=== PATIENT | male | born 1965 | race Hispanic/Latino ===

== ENCOUNTER 2019-09-30 08:54 | Emergency (ER) | payer BC ==
--- OUTSIDE RECORDS SUMMARY | 2019-09-30 08:56 | XMS REPORT ---
:1965 [facility] Address [address] [place] [address] Dr. V[address] [place] [address] Care Team Providers Name Role Phone Unavailable Unavailable Unavailable Problems This patient has no known problems. Allergies, Adverse Reactions, Alerts This patient has no known allergies or adverse reactions. Medications This patient has no known medications.
--- OUTSIDE RECORDS SUMMARY | 2019-09-30 08:56 | XMS REPORT | Summary of Care ---
:1965 Author Organization [facility] - Health Address [address] [place] [address] Care Team Providers Name Role Phone Clifton Lopez MD Primary Care Provider Encounter Details Date Type Department Care Team Description 09/07/2019 Orders Only [facility] Doctor Unassigned, No [address] [facility] [place] [address] [address] [place] [address] Allergies Not on Filedocumented as of this encounter (statuses as of 09/07/2019) Medications Not on filedocumented as of this encounter (statuses as of 09/07/2019) Active Problems Not on filedocumented as of this encounter (statuses as of 09/07/2019) Social History Tobacco Use Types Packs/Day Years Used Date Never Assessed Sex Assigned at Date Recorded Not on file Job Start Date Occupation Industry Not on file Not on file Not on file Travel History Travel Start Travel End No recent travel history available. documented as of this encounter Last Filed Vital Signs Not on filedocumented in this encounter Plan of Treatment Health Maintenance Due Date Last Done Comments HEPATITIS C (HCV) SCREEN 1965 DTaP,Tdap,and Td Vaccines (1 - 01/31/1975 Tdap) COLONOSCOPY 01/31/2014 Zoster Recombinant Vaccine 01/31/2014 (SHINGRIX) (1 of 2) INFLUENZA VACCINE (#1) 2019 PNEUMOCOCCAL 0-64 YEARS COMBINED Aged Out No longer eligible based on SERIES patient's age to complete this topic documented as of this encounter Procedures Procedure Name Priority Date/Time Associated Diagnosis Comments ASSIGNMENT OF BENEFITS Routine 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
--- OUTSIDE RECORDS SUMMARY | 2019-09-30 08:56 | XMS REPORT | Summary of Care ---
:1965 Author Organization [facility] Address [address] [place] [id number] Care Team Providers Name Role Phone Clifton Lopez MD Primary Care Provider Reason for Referral Radiology Services (Routine) Status Reason Specialty Diagnoses / Referred By Referred To Procedures Contact Contact Closed Diagnostic Diagnoses Bilateral shoulder pain, unspecified chronicity Clifton Lopez Radiology Procedures XR SHOULDER <2 VW BILATERAL MD [facility] [address] [place] [address] Radiology Services (Routine) Status Reason Specialty Diagnoses / Referred By Referred To Procedures Contact Contact New Request Diagnostic Diagnoses Pain in both knees, unspecified chronicity Clifton Lopez Radiology Procedures XR KNEE 3 VW BILATERAL MD [facility] [address] [place] [address] Reason for Visit Radiology Services (Routine) Status Reason Specialty Diagnoses / Referred By Referred To Procedures Contact Contact Closed Diagnostic Diagnoses Bilateral shoulder pain, unspecified chronicity Clifton Lopez Radiology Procedures XR SHOULDER <2 VW BILATERAL MD [facility] [address] [place] [address] Encounter Details Date Type Department Care Team Description 09/07/2019 Hospital Encounter [facility] Clifton Tatum Radiology MD [facility] [address] [facility] [address] [place] [address] [facility] [phone] [place] [address] Allergies Not on Filedocumented as of this encounter (statuses as of 09/08/2019) Medications Not on filedocumented as of this encounter (statuses as of 09/08/2019) Active Problems Not on filedocumented as of this encounter (statuses as of 09/08/2019) Social History Tobacco Use Types Packs/Day Years [...] Procedure Name Priority Date/Time Associated Diagnosis Comments XR SHOULDER <2 VW Routine 09/07/2019 9:24 AM Bilateral shoulder Results for this 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 XR KNEE 3 VW Routine 09/07/2019 9:24 AM Pain in both knees, Results for this BILATERAL HUMAN RESOURCE MANAGER unspecified procedure are in chronicity the results section. documented in this encounter Results XR SHOULDER <2 VW BILATERAL (09/07/2019 9:24 AM HUMAN RESOURCE MANAGER) Specimen Impressions Performed At PACS/VR/DOSE Mild bilateral knee and glenohumeral joint osteoarthrosis. Bilateral rotator cuff crystalline deposition. Enthesophyte formation versus biceps tendon osseous bodies at the level of the left proximal humerus. Narrative Performed At EXAM: PACS/VR/DOSE XR KNEE 3 VW BILATERAL, EXAM: XR SHOULDER <2 VW BILATERAL HISTORY: Pain in both knees, unspecified chronicity COMPARISON: None FINDINGS: Imaging of the left and right knee demonstrates mild degenerative tibial spine hypertrophy. Mild bilateral tricompartmental knee joint space narrowing with subchondral sclerosis and osteophyte formation are seen. A dystrophic calcification is seen over the posterior proximal left leg. Trace joint effusions are present. Images of the left shoulder demonstrate maintenance of alignment. Curvilinear crystalline deposits are seen adjacent to the humeral heads. Minimal inferior glenohumeral osteophytosis is seen bilaterally, more notable on the left. Osseous debris lies along the proximal medial cortex of the left humeral head. Procedure Note [facility], Radiant Results Inft User - 09/07/2019 1:00 PM HUMAN RESOURCE MANAGER EXAM: XR KNEE 3 VW BILATERAL, EXAM: XR SHOULDER <2 VW BILATERAL HISTORY: Pain in both knees, unspecified chronicity COMPARISON: None FINDINGS: Imaging of the left and right knee demonstrates mild degenerative tibial spine hypertrophy. Mild bilateral tricompartmental knee joint space narrowing with subchondral sclerosis and osteophyte formation are seen. A dystrophic calcification is seen over the posterior proximal left leg. Trace joint effusions are present. Images of the left shoulder demonstrate maintenance of alignment. Curvilinear crystalline deposits are seen adjacent to the humeral heads. Minimal inferior glenohumeral osteophytosis is seen bilaterally, more notable on the left. Osseous debris lies along the proximal medial cortex of the left humeral head. IMPRESSION Mild bilateral knee and glenohumeral joint osteoarthrosis. Bilateral rotator cuff crystalline deposition. Enthesophyte formation versus biceps tendon osseous bodies at the level of the left proximal humerus. Performing Organization Address City/State/Zipcode Phone Number PACS/VR/DOSE XR KNEE 3 VW BILATERAL (09/07/2019 9:24 AM HUMAN RESOURCE MANAGER) Specimen Impressions Performed At PACS/VR/DOSE Mild bilateral knee and glenohumeral joint osteoarthrosis. Bilateral rotator cuff crystalline deposition. Enthesophyte formation versus biceps tendon osseous bodies at the level of the left proximal humerus. Narrative Performed At EXAM: PACS/VR/DOSE XR KNEE 3 VW BILATERAL, EXAM: XR SHOULDER <2 VW BILATERAL HISTORY: Pain in both knees, unspecified chronicity COMPARISON: None FINDINGS: Imaging of the left and right knee demonstrates mild degenerative tibial spine hypertrophy. Mild bilateral tricompartmental knee joint space narrowing with subchondral sclerosis and osteophyte formation are seen. A dystrophic calcification is seen over the posterior proximal left leg. Trace joint effusions are present. Images of the left shoulder demonstrate maintenance of alignment. Curvilinear crystalline deposits are seen adjacent to the humeral heads. Minimal inferior glenohumeral osteophytosis is seen bilaterally, more notable on the left. Osseous debris lies along the proximal medial cortex of the left humeral head. Procedure Note [facility], Radiant Results Inft User - 09/07/2019 1:00 PM HUMAN RESOURCE MANAGER EXAM: XR KNEE 3 VW BILATERAL, EXAM: XR SHOULDER <2 VW BILATERAL HISTORY: Pain in both knees, unspecified chronicity COMPARISON: None FINDINGS: Imaging of the left and right knee demonstrates mild degenerative tibial spine hypertrophy. Mild bilateral tricompartmental knee joint space narrowing with subchondral sclerosis and osteophyte formation are seen. A dystrophic calcification is seen over the posterior proximal left leg. Trace joint effusions are present. Images of the left shoulder demonstrate maintenance of alignment. Curvilinear crystalline deposits are seen adjacent to the humeral heads. Minimal inferior glenohumeral osteophytosis is seen bilaterally, more notable on the left. Osseous debris lies along the proximal medial cortex of the left humeral head. IMPRESSION Mild bilateral knee and glenohumeral joint osteoarthrosis. Bilateral rotator cuff crystalline deposition. Enthesophyte formation versus biceps tendon osseous bodies at the level of the left proximal humerus. Performing Organization Address City/State/Zipcode Phone Number PACS/VR/DOSE documented in this encounter Visit Diagnoses Diagnosis Pain in both knees, unspecified chronicity Bilateral shoulder pain, unspecified chronicity documented in this encounter Insurance Payer Benefit Plan Subscriber ID Effective Dates Phone Address Type / Group BCBS [facility] [id number] 2017-Shelia [phone] [address] PPO/POS [place] t [id number] [place] [address] ([place]) [place] [address] documented as of this encounter
[2019-09-30] MEDS ORDERED: MECLIZINE HCL 12.5 MG TAB ONE (09:42)
[2019-09-30] MEDS ORDERED: DIAZEPAM 5 MG TABLET ONE (09:42)
--- NOTE | 2019-09-30 10:54 | EDPHYS ---
Physician Documentation [facility] Name: Mohan Billingsley Age: 54 yrs Sex: Male : 1965 Arrival Date: 09/30/2019 Time: 08:57 Bed 18 Private MD: ED Physician Juan C Cali HPI: 09/30 09:53 This 54 yrs old Male presents to ER via Ambulatory with complaints of kdr Dizziness, Nausea, Decreased Appetite. 09:53 The patient presents with dizziness, feeling off balance, vertigo. Onset: The kdr symptoms/episode began/occurred suddenly, 2-3 days ago. Context: occurred at home, occurred while the patient was at rest, just prior to the episode the patient experienced no apparent symptoms. Modifying factors: The symptoms are alleviated by closing eyes, holding head still, the symptoms are aggravated by movement of head, standing up, changing position. Associated signs and symptoms: Pertinent positives: ataxia, nausea, vomiting, Pertinent negatives: abdominal pain, agitation, blurred vision, chest pain, combativeness, confusion, diaphoresis, focal weakness, numbness, palpitations, , seizure, shortness of breath, syncope, tingling. Severity of symptoms: At their worst the symptoms were mild moderate just prior to arrival, in the emergency department the symptoms have improved mildly. Patient's baseline: Neuro: alert and fully oriented, Motor: no deficits, Ambulation: walks without assistance, Speech: normal. The patient has experienced a previous episode, and the symptoms today are exactly the same. Historical: - Allergies: 09:10 No Known Allergies; iw - Home Meds: 09:10 Metformin Oral [Active]; iw - PMHx: 09:10 Diabetes - NIDDM; iw - PSHx: 09:10 None; iw - Immunization history:: Adult Immunizations up to date. - Coronavirus screen:: The patient has NOT traveled to [place] in the past 14 days. Proceed with normal triage process as indicated. - Social history:: Smoking status: Patient reports the use of cigarette tobacco products, denies chronic smoking, but will smoke occasionally. - Ebola Screening: : Patient negative for fever greater than or equal to 101.5 degrees Fahrenheit, and additional compatible Ebola Virus Disease symptoms Patient denies exposure to infectious person Patient denies travel to an Ebola-affected area in the 21 days before illness onset No symptoms or risks identified at this time. ROS: 09:53 Constitutional: Negative for fever, chills, and weight loss, Eyes: Negative for injury, kdr pain, redness, and discharge, ENT: Negative for injury, pain, and discharge, Neck: Negative for injury, pain, and swelling, Cardiovascular: Negative for chest pain, palpitations, and edema, Respiratory: Negative for shortness of breath, cough, wheezing, and pleuritic chest pain, Abdomen/GI: Negative for abdominal pain, nausea, vomiting, diarrhea, and constipation, Back: Negative for injury and pain, : Negative for injury, bleeding, discharge, and swelling, MS/Extremity: Negative for injury and deformity, Skin: Negative for injury, rash, and discoloration, Psych: Negative for depression, anxiety, suicide ideation, homicidal ideation, and hallucinations, Allergy/Immunology: Negative for hives, rash, and allergies, Endocrine: Negative for neck swelling, polydipsia, polyuria, polyphagia, and marked weight changes, Hematologic/Lymphatic: Negative for swollen nodes, abnormal bleeding, and unusual bruising. 09:53 Neuro: Positive for dizziness, Negative for altered mental status, gait disturbance, hearing loss, loss of consciousness, numbness, seizure activity, speech changes, syncope, near syncope, tingling, tinnitus, tremor, visual changes, weakness. Exam: 09:53 Constitutional: This is a well developed, well nourished patient who is awake, alert, kdr and in no acute distress. Head/Face: Normocephalic, atraumatic. Eyes: Pupils equal round and reactive to light, extra-ocular motions intact. Lids and lashes normal. Conjunctiva and sclera are non-icteric and not injected. Cornea within normal limits. Periorbital areas with no swelling, redness, or edema. Neck: Trachea midline, no thyromegaly or masses palpated, and no cervical lymphadenopathy. Supple, full range of motion without nuchal rigidity, or vertebral point tenderness. No Meningismus. Chest/axilla: Normal chest wall appearance and motion. Nontender with no deformity. No lesions are appreciated. Cardiovascular: Regular rate and rhythm with a normal S1 and S2. No gallops, murmurs, or rubs. Normal PMI, no JVD. No pulse deficits. Respiratory: Lungs have equal breath sounds bilaterally, clear to auscultation and percussion. No rales, rhonchi or wheezes noted. No increased work of breathing, no retractions or nasal flaring. Abdomen/GI: Soft, non-tender, with normal bowel sounds. No distension or tympany. No guarding or rebound. No evidence of tenderness throughout. Back: No spinal tenderness. No costovertebral tenderness. Full range of motion. Skin: Warm, dry with normal turgor. Normal color with no rashes, no lesions, and no evidence of cellulitis. MS/ Extremity: Pulses equal, no cyanosis. Neurovascular intact. Full, normal range of motion. Psych: Awake, alert, with orientation to person, place and time. Behavior, mood, and affect are within normal limits. 09:53 Neuro: Gait: is steady, appropriate for age. Vital Signs: 09:10 BP 139 / 84; Pulse 72; Resp 18 S; Temp 97.7; Pulse Ox 100% on R/A; Weight 95.25 kg; iw Height 5 ft. 6 in. (167.64 cm); Pain 0/10; 10:45 BP 135 / 79; Pulse 69; Resp 17; Pulse Ox 98% on R/A; tw2 09:10 Body Mass Index 33.89 (95.25 kg, 167.64 cm) iw MDM: 10:52 Patient medically screened. kdr 11:08 Data reviewed: vital signs, nurses notes. Counseling: I had a detailed discussion with kdr the patient and/or guardian regarding: the historical points, exam findings, and any diagnostic results supporting the discharge/admit diagnosis, the need for outpatient follow up. Administered Medications: 09:42 Drug: Meclizine 25 mg Route: PO; tw2 11:02 Follow up: Response: No adverse reaction; Marked relief of symptoms tw2 09:42 Drug: Valium 5 mg Route: PO; tw2 11:02 Follow up: Response: No adverse reaction; Marked relief of symptoms tw2 Disposition: 09/30/19 10:52 Discharged to Home. Impression: Other peripheral vertigo, bilateral. - Condition is Stable. - Discharge Instructions: Vertigo, [id number], Dizziness, [id number]. - Prescriptions for Meclizine 25 mg Oral Tablet - take 1 tablet by ORAL route every 8 hours As needed; 30 tablet. Valium 5 mg Oral Tablet - take 1 tablet by ORAL route every 8 hours As needed; 6 tablet. - Medication Reconciliation Form, Thank You Letter, Work release form form. - Follow up: Private Physician; When: 2 - 3 days; Reason: If symptoms return, Further diagnostic work-up, Recheck today's complaints, Continuance of care, Re-evaluation by your physician. - Problem is new. - Symptoms are resolved. Signatures: Juan C Cali MD MD kdr Angelica Bae RN RN iw Alecia Irby RN RN tw2 Corrections: (The following items were deleted from the chart) 11:02 10:52 09/30/2019 10:52 Discharged to Home. Impression: Other peripheral vertigo, tw2 bilateral. Condition is Stable. Forms are Work release form, Medication Reconciliation Form, Thank You Letter, Antibiotic Education, Prescription Opioid Use. Follow up: Private Physician; When: 2 - 3 days; Reason: If symptoms return, Further diagnostic work-up, Recheck today's complaints, Continuance of care, Re-evaluation by your physician. Problem is new. Symptoms are resolved. kdr
--- NOTE | 2019-09-30 10:54 | ER ---
Nurse's Notes [facility] Name: Mohan Billingsley Age: 54 yrs Sex: Male : 1965 Arrival Date: 09/30/2019 Time: 08:57 Bed 18 Private MD: Diagnosis: Other peripheral vertigo, bilateral Presentation: 09/30 09:08 Presenting complaint: Patient states: woke up yesterday and was dizzy and off balance, iw felt nauseated, dizziness is worse when he starts moving. Transition of care: patient was not received from another setting of care. Onset of symptoms was September 29, 2019. Risk Assessment: Do you want to hurt yourself or someone else? Patient reports no desire to harm self or others. Initial Sepsis Screen: Does the patient meet any 2 criteria? No. Patient's initial sepsis screen is negative. Does the patient have a suspected source of infection? No. Patient's initial sepsis screen is negative. Care prior to arrival: None. 09:08 Method Of Arrival: Ambulatory iw 09:08 Acuity: ANILA 3 iw Triage Assessment: 09:15 General: Appears in no apparent distress. Behavior is calm, cooperative, appropriate tw2 for age. GI: Reports nausea. Historical: - Allergies: 09:10 No Known Allergies; iw - Home Meds: 09:10 Metformin Oral [Active]; iw - PMHx: 09:10 Diabetes - NIDDM; iw - PSHx: 09:10 None; iw - Immunization history:: Adult Immunizations up to date. - Coronavirus screen:: The patient has NOT traveled to [place] in the past 14 days. Proceed with normal triage process as indicated. - Social history:: Smoking status: Patient reports the use of cigarette tobacco products, denies chronic smoking, but will smoke occasionally. - Ebola Screening: : Patient negative for fever greater than or equal to 101.5 degrees Fahrenheit, and additional compatible Ebola Virus Disease symptoms Patient denies exposure to infectious person Patient denies travel to an Ebola-affected area in the 21 days before illness onset No symptoms or risks identified at this time. Screenin:12 Abuse screen: Denies threats or abuse. Nutritional screening: No deficits noted. tw2 Tuberculosis screening: No symptoms or risk factors identified. Fall Risk None identified. Assessment: 09:15 General: Appears in no apparent distress. well groomed, Behavior is calm, cooperative, tw2 appropriate for age. Pain: Denies pain. Neuro: Level of Consciousness is awake, alert, obeys commands, Oriented to person, place, time, situation, Reports dizziness. Cardiovascular: Heart tones S1 S2 Patient's skin is warm and dry. Respiratory: Airway is patent Respiratory effort is even, unlabored, Respiratory pattern is regular, symmetrical, Breath sounds are clear bilaterally. GI: Abdomen is flat, Bowel sounds present X 4 quads. : No signs and/or symptoms were reported regarding the genitourinary system. EENT: No signs and/or symptoms were reported regarding the EENT system. Derm: No signs and/or symptoms reported regarding the dermatologic system. Musculoskeletal: Range of motion: intact in all extremities. 09:30 Reassessment: provider at bedside at this time. tw2 11:00 Reassessment: Patient appears in no apparent distress at this time. Patient and/or tw2 family updated on plan of care and expected duration. Pain level reassessed. Patient is alert, oriented x 3, equal unlabored respirations, skin warm/dry/pink. Patient states feeling better. Patient states symptoms have improved. Vital Signs: 09:10 BP 139 / 84; Pulse 72; Resp 18 S; Temp 97.7; Pulse Ox 100% on R/A; Weight 95.25 kg; iw Height 5 ft. 6 in. (167.64 cm); Pain 0/10; 10:45 BP 135 / 79; Pulse 69; Resp 17; Pulse Ox 98% on R/A; tw2 09:10 Body Mass Index 33.89 (95.25 kg, 167.64 cm) iw ED Course: 08:57 Patient arrived in ED. as 08:57 Juan C Cali MD is Attending Physician. kdr 09:08 Triage completed. iw 09:10 Arm band placed on. iw 09:11 Bed in low position. Call light in reach. Adult w/ patient. classroom monitor on. Pulse tw2 ox on. NIBP on. Warm blanket given. 09:16 Alecia Irby RN is Primary Nurse. tw2 11:02 No provider procedures requiring assistance completed. Patient did not have IV access tw2 during this emergency room visit. Administered Medications: 09:42 Drug: Meclizine 25 mg Route: PO; tw2 11:02 Follow up: Response: No adverse reaction; Marked relief of symptoms tw2 09:42 Drug: Valium 5 mg Route: PO; tw2 11:02 Follow up: Response: No adverse reaction; Marked relief of symptoms tw2 Outcome: 10:52 Discharge ordered by . kdr 11:02 Patient left the ED. tw2 11:02 Discharged to home ambulatory, with significant other. tw2 11:02 Condition: stable 11:02 Discharge instructions given to patient, family, Instructed on discharge instructions, follow up and referral plans. no drinking with medication, no driving heavy equipment, medication usage, Demonstrated understanding of instructions, follow-up care, medications, Prescriptions given X 2. Signatures: Juan C Cali MD MD kdr Martinez, Amelia as Williams, Irene, MARY HERNANDEZ iw Alecia Irby RN RN tw2
[2019-09-30 11:08] VITALS: BP 139/84; TEMP 97.7; O2SAT 100
== END 2019-09-30 11:02 | disposition home or self-care (01) ==
LOC: ER 08:54
DX: H81.393 Other peripheral vertigo, bilateral (principal); E11.9 Type 2 diabetes mellitus without complications; F17.210 Nicotine dependence, cigarettes, uncomplicated
CPT/HCPCS: 99284

== ENCOUNTER 2020-09-26 07:53 | Emergency (ER) | payer BC ==
--- OUTSIDE RECORDS SUMMARY | 2020-09-26 07:55 | XMS REPORT | Continuity of Care Document ---
:1965 Author Organization [facility] t Address [address] [place] [address] Care Team Providers Name Role Phone Bud Alexander MD Attending Clinician Miranda FAX MACHINE REPAIRER Attending Clinician Aida Jiménez MD Attending Clinician Only, Test Attending Clinician Unavailable Pob, Lab Main Attending Clinician Unavailable Sotero Lopez MD Attending Clinician Doctor Unassigned, Name Attending Clinician Unavailable Bud Alexander MD Admitting Clinician Problems This patient has no known problems. Allergies, Adverse Reactions, Alerts This patient has no known allergies or adverse reactions. Medications This patient has no known medications. Procedures This patient has no known procedures. Encounters Start End Encounter Admission Attending Care Care Encounter Source Date/Time Date/Time Type Type Clinicians Facility Department ID 2020-04-13 2020-04-13 [facility] 1.2.840.114 [id number] 08:10:00 13:22:00 Encounter Marlo Rosa [id number] [place] [id number] Surgical [id number] [place] 071 2020-04-13 2020-04-13 Anesthesia Reinier Jean [facility] 1.2.840.11 [id number] 09:59:00 11:54:00 Eulalia Jiménez [id number] [place] [id number] Surgical [id number] [place] 020 2020-04-12 2020-04-12 Laboratory Only, [facility] 1.2.840.114 [id number] 10:07:53 10:22:53 Only Test Moe [id number] [place] [id number] [place] [id number] 353 2020-04-12 2020-04-12 Thimble Press Operator Sherif [facility] 1.2.840.114 [id number] 10:07:23 10:22:23 Visit Lab Main Moe [id number] [place] [id number] Professio [id number] [facility] 353 [facility] 2019-09-07 2019-09-07 Hospital Clifton Lopez [facility] [id number] [id number] 08:30:00 23:59:00 Encounter Sotero Rosa [id number] [place] [id number] [place] [id number] 807 2019-09-07 2019-09-07 Orders Doctor EULALIA [id number] 00:00:00 00:00:00 Only Unassigned, ERICH [id number] [place] [id number] Results This patient has no known results.
[2020-09-26] MEDS ORDERED: ACETAMINOPHEN 500 MG TAB ONE (08:51)
--- NOTE | 2020-09-26 09:06 | RAD REPORT ---
EXAM DESCRIPTION: RAD - Chest Single View - 09/26/2020 9:00 am CLINICAL HISTORY: COUGH Chest pain. COMPARISON: CHEST PA AND LAT 2 VIEW dated 08/24/2007 FINDINGS: Portable technique limits examination quality. The lungs are grossly clear. The heart is normal in size. No displaced fractures. IMPRESSION: No acute intrathoracic process suspected.
[2020-09-26] MEDS ORDERED: NA CHLORIDE 0.9% 1,000 ML ONE (09:09)
[2020-09-26 09:22] LABS: Absolute Lymphocytes (CBC) 0.8 K/uL (0.7-4.9); Basophils % 0.3 % (0-1.3); Hematocrit 42.4 % (39.6-49.0); Lymphocytes % 20.9 % (15.3-44.8); MPV 9.3 fL (7.6-11.3); RBC Red Blood Cell Count 4.84 M/uL (4.33-5.43)
[2020-09-26 09:43] LABS: Ferritin 1471.5 ng/mL (26-388); Potassium 3.4 mmol/L (3.5-5.1)
[2020-09-26] MEDS ORDERED: METHYLPREDNISOLONE 125 MG INJ ONE (10:22)
[2020-09-26 10:30] LABS: SARS-COV-2 RT PCR POSITIVE (NEGATIVE)
--- NOTE | 2020-09-26 10:46 | EDPHYS ---
Physician Documentation [facility] Name: Mohan Billingsley Age: 55 yrs Sex: Male : 1965 Arrival Date: 09/26/2020 Time: 07:56 Bed 3 Private MD: ED Physician Warren Morris HPI: 09/26 09:10 This 55 yrs old Male presents to ER via Wheelchair with complaints of rn Shortness Of Breath, Fatigue. 09:10 The patient has shortness of breath at rest, with light activity. Onset: The rn symptoms/episode began/occurred 10 day(s) ago. Duration: The symptoms are intermittent. The patient's shortness of breath is aggravated by coughing, light activity. Associated signs and symptoms: Pertinent positives: productive cough, dizziness, fever. Severity of symptoms: At their worst the symptoms were moderate in the emergency department the symptoms are unchanged. The patient has not experienced similar symptoms in the past. The patient has not recently seen a physician. Reports 10 days of cough, sob, weakness, no sick contacts. + fever. + muscle aches and fatigue. No appetite for days. . Historical: - Allergies: 08:30 No Known Allergies; aa5 - Home Meds: 08:30 Metformin Oral [Active]; Victoza 2-Tonio subcutaneous subcutaneous [Active]; aa5 - PMHx: 08:30 Diabetes - IDDM; aa5 - PSHx: 08:30 None; aa5 - Immunization history:: Adult Immunizations unknown. - Social history:: Smoking status: Patient denies any tobacco usage or history of. - Family history:: not pertinent. - Hospitalizations: : No recent hospitalization is reported. ROS: 09:10 Constitutional: Negative for fever, chills, and weight loss, Eyes: Negative for injury, rn pain, redness, and discharge, Neck: Negative for injury, pain, and swelling, Cardiovascular: Negative for chest pain, palpitations, and edema, Respiratory: + cough and sob Abdomen/GI: Negative for abdominal pain, nausea, vomiting, diarrhea, and constipation, Back: Negative for injury and pain, : Negative for injury, bleeding, discharge, and swelling, MS/Extremity: Negative for injury and deformity, Skin: Negative for injury, rash, and discoloration, Neuro: Negative for numbness, tingling, and seizure. Exam: 09:10 Constitutional: This is a well developed, well nourished patient who is awake, alert, rn and in no acute distress. Head/Face: Normocephalic, atraumatic. ENT: no stridor Cardiovascular: Tachycardic, regular Respiratory: Mild tachypnea, no retractions Abdomen/GI: Soft, non-tender, with normal bowel sounds. No distension or tympany. No guarding or rebound. No evidence of tenderness throughout. Skin: Warm, dry MS/ Extremity: Pulses equal, no cyanosis. Neurovascular intact. Full, normal range of motion. Equal circumference. Neuro: Awake and alert, GCS 15 Vital Signs: 08:27 BP 108 / 79; Pulse 104; Resp 20 S; Temp 102.0(O); Pulse Ox 98% on R/A; Weight 95.25 kg aa5 (R); Height 5 ft. 7 in. (170.18 cm) (R); 09:44 BP 113 / 72; Pulse 91; Resp 17; Pulse Ox 98% on R/A; tw2 11:13 BP 109 / 75; Pulse 89; Resp 17; Temp 100.1(TE); Pulse Ox 97% on R/A; tw2 08:27 Body Mass Index 32.89 (95.25 kg, 170.18 cm) aa5 MDM: 08:38 Patient medically screened. rn 10:44 Differential diagnosis: pneumonia, COVID, pneumonia. Data reviewed: vital signs, nurses rn notes, lab test result(s), radiologic studies, plain films, and as a result, I will discharge patient. Counseling: I had a detailed discussion with the patient and/or guardian regarding: the historical points, exam findings, and any diagnostic results supporting the discharge/admit diagnosis, lab results, radiology results, the need for outpatient follow up, to return to the emergency department if symptoms worsen or persist or if there are any questions or concerns that arise at home. Response to treatment: the patient's symptoms have mildly improved after treatment, and as a result, I will discharge patient. Special discussion: I discussed with the patient/guardian in detail that at this point there is no indication for admission to the hospital. It is understood, however, that if the symptoms persist or worsen the patient needs to return immediately for re-evaluation. ED course: No oxygen requirement, clear CXR, + COVID, will dc home with steroids and inhaler prn with return precautions. . 09/26 08:41 Order name: CBC with Diff; Complete Time: 09:58 rn 09/26 08:41 Order name: Basic Metabolic Panel; Complete Time: 09:58 rn 09/26 08:41 Order name: Ferritin; Complete Time: 09:58 rn 09/26 08:41 Order name: Blood Culture Adult (2) rn 09/26 08:41 Order name: XRAY Chest (1 view); Complete Time: 09:07 rn 09/26 08:41 Order name: Procalcitonin; Complete Time: 09:58 rn 09/26 08:42 Order name: Glucose, Ancillary Testing; Complete Time: 09:07 EDMS 09/26 10:30 Order name: COVID-19/FLU A+B; Complete Time: 10:35 EDMS 09/26 08:41 Order name: IV Start; Complete Time: 09:01 rn 09/26 08:41 Order name: EKG; Complete Time: 08:42 rn 09/26 08:41 Order name: EKG - Nurse/Tech; Complete Time: 09:55 rn Administered Medications: 08:35 Drug: Tylenol 1000 mg Route: PO; aa5 09:01 Drug: NS 0.9% 1000 ml Route: IV; Rate: 1000 ml; Site: left antecubital; hb 10:10 Follow up: Response: No adverse reaction; IV Status: Completed infusion; IV Intake: tw2 1000ml 10:11 Drug: SOLU-Medrol 125 mg Route: IVP; Site: left antecubital; tw2 11:00 Follow up: Response: No adverse reaction tw2 Point of Care Testing: Blood Glucose: 08:30 Blood Glucose: 203 mg/dL; aa5 Ranges: Critical Glucose Levels:Adult <50 mg/dl or >400 mg/dl <40 mg/dl or >180 mg/dl Disposition: 09/26/20 10:45 Discharged to Home. Impression: Coronavirus infection, unspecified. - Condition is Stable. - Discharge Instructions: COVID-19. - Prescriptions for Prednisone 20 mg Oral Tablet - take 1 tablet by ORAL route as directed for 14 days Take 2 tablets by mouth daily for 7 days, then 1 tablet by mouth daily for 7 days, total of 14 days.; 21 tablet. Albuterol Sulfate 90 mcg/actuation - inhale 1-2 puff by INHALATION route every 4-6 hours; 1 Inhaler. - Medication Reconciliation Form, Thank You Letter, Antibiotic Education, Prescription Opioid Use form. - Follow up: Private Physician; When: As needed; Reason: Recheck today's complaints, Re-evaluation by your physician. - Problem is new. - Symptoms have improved. Signatures: Dispatcher [employer] [facility] Warren Morris MD MD rn Calderon, Audri RN RN aa5 Kamilah Dobson RN RN Alecia Irby RN RN tw2 Corrections: (The following items were deleted from the chart) 09:38 08:42 Influenza Screen (A ordered. [facility] EDAR 09:38 08:42 Influenza Screen (A \T\ B)+BA.LAB.BRZ ordered. [facility] 11:14 10:45 09/26/2020 10:45 Discharged to Home. Impression: Coronavirus infection, tw2 unspecified. Condition is Stable. Forms are Medication Reconciliation Form, Thank You Letter, Antibiotic Education, Prescription Opioid Use. Follow up: Private Physician; When: As needed; Reason: Recheck today's complaints, Re-evaluation by your physician. Problem is new. Symptoms have improved. rn
--- NOTE | 2020-09-26 10:46 | ER ---
Nurse's Notes [facility] Name: Mohan Billingsley Age: 55 yrs Sex: Male : 1965 Arrival Date: 09/26/2020 Time: 07:56 Bed 3 Private MD: Diagnosis: Coronavirus infection, unspecified Presentation: 09/26 08:27 Chief complaint: Patient states: "I just haven't felt good over the last 10 days, I aa5 just feel weak, my body hurts, I have a sore throat, a little bit of cough with phlegm". Pt also states "I have not eaten in like 10 days because my throat hurts and because I have no appetite". Coronavirus screen: cough unrelated to allergies, fatigue, fever, sore throat. Ebola Screen: Patient negative for fever greater than or equal to 101.5 degrees Fahrenheit, and additional compatible Ebola Virus Disease symptoms. Initial Sepsis Screen: Does the patient meet any 2 criteria? Temp <36.0*C (96.8*F)) or > 38.3*C (100.9*F). HR > 90 bpm. Yes Does the patient have a suspected source of infection? Yes:. Risk Assessment: Do you want to hurt yourself or someone else? Patient reports no desire to harm self or others. Onset of symptoms was September 2020. 08:27 Acuity: ANILA 3 aa5 08:27 Method Of Arrival: Wheelchair aa5 Historical: - Allergies: 08:30 No Known Allergies; aa5 - Home Meds: 08:30 Metformin Oral [Active]; Victoza 2-Tonio subcutaneous subcutaneous [Active]; aa5 - PMHx: 08:30 Diabetes - IDDM; aa5 - PSHx: 08:30 None; aa5 - Immunization history:: Adult Immunizations unknown. - Social history:: Smoking status: Patient denies any tobacco usage or history of. - Family history:: not pertinent. - Hospitalizations: : No recent hospitalization is reported. Screenin:54 Abuse screen: Denies threats or abuse. Denies injuries from another. Nutritional hb screening: No deficits noted. Tuberculosis screening: No symptoms or risk factors identified. Fall Risk None identified. Assessment: 08:55 General: Appears in no apparent distress. Behavior is calm, cooperative. Pain: Pain hb currently is 5 out of 10 on a pain scale. Neuro: Level of Consciousness is awake, alert, obeys commands, Oriented to person, place, time, situation. Cardiovascular: Capillary refill < 3 seconds Patient's skin is warm and dry. Rhythm is regular. Respiratory: Reports shortness of breath on exertion Airway is patent Respiratory effort is even, unlabored, Respiratory pattern is regular, symmetrical. GI: No signs and/or symptoms were reported involving the gastrointestinal system. : No signs and/or symptoms were reported regarding the genitourinary system. EENT: No signs and/or symptoms were reported regarding the EENT system. Derm: Skin is pink, warm \\T\\ dry. Musculoskeletal: Reports body aches. 11:14 Reassessment: Patient appears in no apparent distress at this time. No changes from tw2 previously documented assessment. Patient and/or family updated on plan of care and expected duration. Pain level reassessed. Patient is alert, oriented x 3, equal unlabored respirations, skin warm/dry/pink. Vital Signs: 08:27 BP 108 / 79; Pulse 104; Resp 20 S; Temp 102.0(O); Pulse Ox 98% on R/A; Weight 95.25 kg aa5 (R); Height 5 ft. 7 in. (170.18 cm) (R); 09:44 BP 113 / 72; Pulse 91; Resp 17; Pulse Ox 98% on R/A; tw2 11:13 BP 109 / 75; Pulse 89; Resp 17; Temp 100.1(TE); Pulse Ox 97% on R/A; tw2 08:27 Body Mass Index 32.89 (95.25 kg, 170.18 cm) aa5 ED Course: 07:56 Patient arrived in ED. ds1 08:27 Arm band placed on. aa5 08:29 Triage completed. aa5 08:38 Warren Morris MD is Attending Physician. rn 08:43 Kamilah Dobson RN is Primary Nurse. hb 08:50 Inserted saline lock: 20 gauge in left antecubital area, using aseptic technique. Blood hb collected. 08:54 Patient has correct armband on for positive identification. Bed in low position. Call hb light in reach. Side rails up X 1. 09:00 XRAY Chest (1 view) In Process Unspecified. EDMS 09:39 EKG done, by ED staff, reviewed by Warren Morris MD. 3 11:13 No provider procedures requiring assistance completed. IV discontinued, intact, tw2 bleeding controlled, No redness/swelling at site. Pressure dressing applied. Administered Medications: 08:35 Drug: Tylenol 1000 mg Route: PO; aa5 09:01 Drug: NS 0.9% 1000 ml Route: IV; Rate: 1000 ml; Site: left antecubital; hb 10:10 Follow up: Response: No adverse reaction; IV Status: Completed infusion; IV Intake: tw2 1000ml 10:11 Drug: SOLU-Medrol 125 mg Route: IVP; Site: left antecubital; tw2 11:00 Follow up: Response: No adverse reaction tw2 Point of Care Testing: Blood Glucose: 08:30 Blood Glucose: 203 mg/dL; aa5 Ranges: Intake: 10:10 IV: 1000ml; Total: 1000ml. tw2 Outcome: 10:45 Discharge ordered by . rn 11:13 Discharged to home ambulatory. tw2 11:13 Condition: stable 11:13 Discharge instructions given to patient, Instructed on discharge instructions, follow up and referral plans. medication usage, Demonstrated understanding of instructions, follow-up care, medications, Prescriptions given X 2. 11:14 Patient left the ED. tw2 Signatures: Dispatcher [employer] [facility] Natty Mandujano ds1 Warren Morris MD MD rn Calderon, Audri RN RN aa5 Kamilah Dobson RN RN hb Wise, Tara, RN RN tw2 Shana Galindo 3 Corrections: (The following items were deleted from the chart) 08:40 08:25 Blood Glucose: Blood Glucose Mdmyfcy=497 mg/dL. aa5 aa5
[2020-09-26 11:54] VITALS: BP 109/75; TEMP 100.1; O2SAT 97
--- NOTE | 2020-09-28 00:04 | EKG ---
Test Date: 2020-09-26 Test Time: 09:39:58 [employer] Teacher: ALE MEASUREMENT RESULTS: Intervals: Rate: 93 CA: 140 QRSD: 96 QT: 360 QTc: 447 [place]: P: 17 CA: 140 QRS: 58 T: -8 INTERPRETIVE STATEMENTS: Sinus rhythm with premature atrial complexes Abnormal QRS-T angle, consider primary T wave abnormality Abnormal ECG Compared to ECG 08/24/2007 17:32:09 Atrial premature complex(es) now present T-wave abnormality now present Sinus bradycardia no longer present Electronically Signed On 09-27-20 23:58:56 SELENIUM PLANT OPERATOR by Shaka Raines
== END 2020-09-26 11:14 | disposition home or self-care (01) ==
LOC: ER 07:53
DX: U07.1 COVID-19 (principal); E11.9 Type 2 diabetes mellitus without complications
CPT/HCPCS: 96361; 93005; 87040 ×2; 85025; 80048; 36415; 82947; 82728; 84145; 0240U; 71045; 96374; 99284; J7030; J2930

== ENCOUNTER 2020-12-16 14:40 | Emergency (ER) | payer BC ==
--- OUTSIDE RECORDS SUMMARY | 2020-12-16 14:42 | XMS REPORT | Continuity of Care Document ---
:1965 Author Organization [facility] t Address [address] [place] [address] Care Team Providers Name Role Phone Bud Alexander MD Attending Clinician Miranda PACKAGE DRIER Attending Clinician Aida Jiménez MD Attending Clinician [...] Type Clinicians Facility Department ID 2020-04-13 2020-04-13 [facility] 1.2.840.114 [id number] 08:10:00 13:22:00 Encounter Marlo Rosa [id number] [place] [id number] Surgical [id number] [place] 071 2020-04-13 2020-04-13 Anesthesia Reinier Jean [facility] 1.2.840.11 [id number] 09:59:00 11:54:00 Eulalia Jiménez [id number] [place] [id number] Surgical [id number] [place] 020 2020-04-12 2020-04-12 Laboratory Only, [facility] 1.2.840.114 [id number] 10:07:53 10:22:53 Only Test Moe [id number] [place] [id number] [place] [id number] 353 2020-04-12 2020-04-12 Perfusionist Sherif [facility] [place] 1.2.840.114 [id number] 10:07:23 10:22:23 Visit Lab Main [place] [id number] [place] [id number] Professio [id number] [address] 2019-09-07 2019-09-07 [facility] Clifton Lopez [facility] [id number] [id number] 08:30:00 23:59:00 Encounter Sotero Rosa [id number] [place] [id number] [place] [id number] 807 2019-09-07 2019-09-07 Orders Doctor EULALIA [id number] [id number] 00:00:00 00:00:00 Only Unassigned, ERICH [id number] [place] [id number] Results This patient has no known results.
[2020-12-16] MEDS ORDERED: LIDOCAINE 1% MPF 5 ML VIAL ONE (15:34)
[2020-12-16] MEDS ORDERED: HYDROCODONE/APAP 5/325 MG TAB ONE (15:34)
--- NOTE | 2020-12-16 15:46 | ER ---
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 my first instinct was to catch it and when I tried I cut my middle finger in my left hand with the knife.". Coronavirus screen: At this time, the client does not indicate any symptoms associated with coronavirus-19. Ebola Screen: Patient negative for fever greater than or equal to 101.5 degrees Fahrenheit, and additional compatible Ebola Virus Disease symptoms. Initial Sepsis Screen: Does the patient meet any 2 criteria? No. Patient's initial sepsis screen is negative. Does the patient have a suspected source of infection? No. Patient's initial sepsis screen is negative. Risk Assessment: Do you want to hurt yourself or someone else? Patient reports no desire to harm self or others. Onset of symptoms was December 16, 2020. 14:43 Method Of Arrival: Ambulatory [facility] 14:43 Acuity: ANILA 3 jd3 Triage Assessment: 15:55 General: Appears in no apparent distress. Behavior is calm, cooperative, appropriate ll1 for age. Injury Description: Laceration. Historical: - Allergies: 14:45 No Known Allergies; jd3 - Home Meds: 14:45 Metformin Oral [Active]; jd3 - PMHx: 14:45 Diabetes - NIDDM; jd3 - PSHx: 14:45 None; jd3 - Immunization history:: Adult Immunizations up to date, Last tetanus immunization: < 5 years ago. - Social history:: Smoking status: unknown. Screenin:15 Abuse screen: Denies threats or abuse. Nutritional screening: No deficits noted. ll1 Tuberculosis screening: No symptoms or risk factors identified. Fall Risk None identified. Total Sinha Fall Scale indicates No Risk (0-24 pts). Assessment: 15:15 General: Appears in no apparent distress. Behavior is calm, cooperative, appropriate ll1 for age. Pain: Complains of pain in palmar aspect of distal phalanx of left middle finger Quality of pain is described as aching, Aggravated by increased activity. Neuro: No deficits noted. Cardiovascular: No deficits noted. Respiratory: No deficits noted. Derm: <2 cm laceration to L hand 3rd digit, bleeding controlled. Reports pain. Musculoskeletal: Circulation, motion, and sensation intact. Capillary refill < 3 seconds, Range of motion: intact in all extremities, Tenderness present in palmar aspect of distal phalanx of left middle finger. Injury Description: Laceration. Vital Signs: 14:45 BP 158 / 77; Pulse 90; Resp 17 S; Temp 98.3(TE); Pulse Ox 98% on R/A; Weight 90.72 kg jd3 (R); Height 5 ft. 6 in. (167.64 cm) (R); Pain 1/10; 15:55 BP 128 / 56; Pulse 71; Resp 16; Pulse Ox 98% ; Pain 2/10; ll1 14:45 Body Mass Index 32.28 (90.72 kg, 167.64 cm) jd3 ED Course: 14:40 Patient arrived in ED. mr 14:44 Triage completed. jd3 14:46 Arm band placed on. jd3 14:52 Julia Cifuentes FNP-C is PHCP. kb 14:52 Ramses Hanna MD is Attending Physician. kb 15:13 Jayde Glez, RN is Primary Nurse. ll1 15:15 Patient has correct armband on for positive identification. Bed in low position. Call ll1 light in reach. Side rails up X 1. Cardiac monitoring not applicable on this patient. 15:55 Assist provider with laceration repair Dressed with Adaptic, tube gauze dressing ll1 Patient tolerated well. Patient did not have IV access during this emergency room visit. Administered Medications: 15:19 Drug: Hankins (HYDROcodone-acetaminophen) 5 mg-325 mg 1 tabs Route: PO; ll1 15:57 Follow up: Response: No adverse reaction; RASS: Alert and Calm (0) ll1 15:30 Drug: Lidocaine (1 %) 1 vials {Note: administered by NIKI Denise during suture ll1 repair.} Volume: 5 ml; Route: Infiltration; 15:57 Follow up: Response: No adverse reaction; RASS: Alert and Calm (0) 1 Outcome: 15:45 Discharge ordered by . kb 15:57 Patient left the ED. ll1 15:57 Discharged to home ambulatory. ll1 15:57 Condition: stable 15:57 Discharge instructions given to patient, family, Instructed on discharge instructions, follow up and referral plans. wound care, Demonstrated understanding of instructions, follow-up care, wound care. Signatures: Julia Cifuentes, NIKI-C NIKI-Radha Vieira Jonathon RN RN jJayde [place] RN RN ll1
--- NOTE | 2020-12-16 15:46 | EDPHYS ---
Physician Documentation [facility] Name: Mohan Billingsley Age: 55 yrs Sex: Male : 1965 Arrival Date: 12/16/2020 Time: 14:40 Bed 17 Private MD: ED Physician Ramses aHnna HPI: 12/16 16:22 This 55 yrs old Male presents to ER via Ambulatory with complaints of Finger kb Injury - Laceration. 16:22 The patient has a laceration related to: sharpening knife, dropped it and caught it kb causing laceration to finger occurred at home, and there are no complicating factors. The laceration(s) is(are) located on the palmar aspect of distal phalanx of left middle finger. Onset: The symptoms/episode began/occurred just prior to arrival. Associated signs and symptoms: The patient has no apparent associated signs or symptoms. The patient has not experienced similar symptoms in the past. The patient has not recently seen a physician. Historical: - Allergies: 14:45 No Known Allergies; jd3 - Home Meds: 14:45 Metformin Oral [Active]; jd3 - PMHx: 14:45 Diabetes - NIDDM; jd3 - PSHx: 14:45 None; jd3 - Immunization history:: Adult Immunizations up to date, Last tetanus immunization: < 5 years ago. - Social history:: Smoking status: unknown. ROS: 16:21 Constitutional: Negative for fever, chills, and weight loss. kb 16:21 MS/extremity: Positive for laceration, of the palmar aspect of distal phalanx of left middle finger. 16:21 Skin: Positive for laceration(s), of the palmar aspect of distal phalanx of left middle finger. 16:21 All other systems are negative. Exam: 16:20 Constitutional: This is a well developed, well nourished patient who is awake, alert, kb and in no acute distress. Head/Face: Normocephalic, atraumatic. ENT: Moist Mucous membranes Respiratory: Respirations even and unlabored. No increased work of breathing, no retractions or nasal flaring. MS/ Extremity: Pulses equal, no cyanosis. Neurovascular intact. Full, normal range of motion. Neuro: Awake and alert, GCS 15, oriented to person, place, time, and situation. Moves all extremities. Normal gait. Psych: Awake, alert, with orientation to person, place and time. Behavior, mood, and affect are within normal limits. 16:20 Skin: injury, laceration(s), the wound is approximately 2.5 cm(s), of the palmar aspect of distal phalanx of left middle finger, that can be described as clean, no foreign body, linear, with mild bleeding. Vital Signs: 14:45 BP 158 / 77; Pulse 90; Resp 17 S; Temp 98.3(TE); Pulse Ox 98% on R/A; Weight 90.72 kg jd3 (R); Height 5 ft. 6 in. (167.64 cm) (R); Pain 1/10; 15:55 BP 128 / 56; Pulse 71; Resp 16; Pulse Ox 98% ; Pain 2/10; ll1 14:45 Body Mass Index 32.28 (90.72 kg, 167.64 cm) jd3 Laceration: 15:44 Wound Repair of 2.5cm ( 1.0in ) subcutaneous laceration to palmar aspect of distal kb phalanx of left middle finger. Irregularly shaped.. Distal neuro/vascular/tendon intact. Anesthesia: Wound infiltrated with 1 mls of 1% lidocaine. Wound prep: Extensive cleansing with hibiclenz by me, Wound irrigation with saline by me. Skin closed with 4 5-0 Prolene using simple sutures and sterile technique. Patient tolerated well. MDM: 14:53 Patient medically screened. kb 15:44 Data reviewed: vital signs, nurses notes. Data interpreted: Pulse oximetry: on room air kb is 98 %. Interpretation: normal. Counseling: I had a detailed discussion with the patient and/or guardian regarding: the historical points, exam findings, and any diagnostic results supporting the discharge/admit diagnosis, the need for outpatient follow up, a family practitioner, to return to the emergency department if symptoms worsen or persist or if there are any questions or concerns that arise at home. 12/16 14:58 Order name: Prolene, Sutures; Complete Time: 15:32 kb 12/16 14:58 Order name: Dressing - Wound; Complete Time: 16:31 kb 12/16 14:58 Order name: Gloves, Sterile; Complete Time: 15:19 kb 12/16 14:59 Order name: Setup Suture Tray; Complete Time: 15:19 kb Administered Medications: 15:19 Drug: Silver (HYDROcodone-acetaminophen) 5 mg-325 mg 1 tabs Route: PO; ll1 15:57 Follow up: Response: No adverse reaction; RASS: Alert and Calm (0) ll1 15:30 Drug: Lidocaine (1 %) 1 vials {Note: administered by NIKI Denise during suture ll1 repair.} Volume: 5 ml; Route: Infiltration; 15:57 Follow up: Response: No adverse reaction; RASS: Alert and Calm (0) ll1 Disposition: 12/17 07:48 Co-signature as Attending Physician, Ramses Hanna MD I agree with the assessment and joelle plan of care. Disposition: 12/16/20 15:45 Discharged to Home. Impression: Laceration without foreign body of left middle finger without damage to nail. - Condition is Stable. - Discharge Instructions: Laceration Care, Adult, [id number]. - Medication Reconciliation Form, Thank You Letter, Antibiotic Education, Prescription Opioid Use form. - Follow up: Emergency Department; When: As needed; Reason: Worsening of condition. Follow up: Private Physician; When: 2 - 3 days; Reason: Recheck today's complaints, Continuance of care, Re-evaluation by your physician. Signatures: Julia Cifuentes, RN WELLNESS-C RN WELLNESS-Ramses Avitia MD MD cha Davies, Jonathon RN RN jJayde Hyde RN RN ll1 Corrections: (The following items were deleted from the chart) 12/16 15:57 15:45 12/16/2020 15:45 Discharged to Home. Impression: Laceration without foreign body ll1 of left middle finger without damage to nail. Condition is Stable. Forms are Medication Reconciliation Form, Thank You Letter, Antibiotic Education, Prescription Opioid Use. Follow up: Emergency Department; When: As needed; Reason: Worsening of condition. Follow up: Private Physician; When: 2 - 3 days; Reason: Recheck today's complaints, Continuance of care, Re-evaluation by your physician. kb
[2020-12-16 16:06] VITALS: BP 158/77; TEMP 98.3; O2SAT 98
== END 2020-12-16 15:57 | disposition home or self-care (01) ==
LOC: ER 14:40
PROC: 0HQGXZZ Repair Left Hand Skin, External Approach (ICD-10-PCS; principal; 2020-12-16)
DX: S61.213A Laceration without foreign body of left middle finger without damage to nail, initial encounter (principal); W26.0XXA Contact with knife, initial encounter; Y92.009 Unspecified place in unspecified non-institutional (private) residence as the place of occurrence of the external cause; E11.9 Type 2 diabetes mellitus without complications; Z79.84 Long term (current) use of oral hypoglycemic drugs
CPT/HCPCS: 99283

== ENCOUNTER 2022-06-08 11:39 | Emergency (ER) | payer SELFPAY ==
--- OUTSIDE RECORDS SUMMARY | 2022-06-08 11:42 | XMS REPORT | Continuity of Care Document ---
:1965 Author Organization [facility] t Address [address] [place] [address] Dr. Carab[address]. [address] [place] [address] Care Team Providers Name Role Phone John LO, Clifton Bey Primary Care Physician MARLO ALEXANDER Attending Clinician Unavailable ZURDO LÓPEZ Attending Clinician Unavailable Nurse, Adc Pob Immunization Attending Clinician Unavailable Zurdo López DO Attending Clinician JC DURÁN Attending Clinician Unavailable Marlo Alexander MD Attending Clinician [phone] Reinier Jean CRNA Attending Clinician Eulalia Jiménez MD Attending Clinician Only, Adc Test Attending Clinician Unavailable Pob, Adc Lab Main Attending Clinician Unavailable Clifton Lopez MD Attending Clinician Doctor Unassigned, [place] Attending Clinician Unavailable MARLO ALEXANDER Admitting Clinician Unavailable Marlo Alexander MD Admitting Clinician [phone] Payers Payer Name Policy Type Policy Number Effective Date Expiration Date S heraclio [facility] [id number] 2017 00:00:00 Problems This patient has no known problems. Allergies, Adverse Reactions, Alerts Allergy Allergy Status Severity Reaction(s) Onset Inactive Treating Comm ents Source Name Type Date Date Clinician NO KNOWN Drug Active Univers ALLERGIE Class ity of [facility] Medical [place] Social History Social Habit Start Date Stop Date Quantity Comments Source Exposure to Not sure [facility] SARS-CoV-2 (event) Medica l Branch Tobacco use and 2020-04-08 2020-04-08 Never used [facility] exposure 00:00:00 00:00:00 Medical Branch Sex [birth year] [facility] 00:00:00 00:00:00 Medical Branch Smoking Status Start Date Stop Date Source Unknown if ever smoked [facility] Current every day smoker 2020-04-08 00:00:00 Uni versity [facility] Medications Ordered Filled Start Stop Current Ordering Indication Dosage Frequency Signature Comments Components Source Medication Medication Date Date Medication? Clinician (SIG) Name Name metFORMIN 2020-0 Yes 750mg Take 750 Uni vers 500 mg 9-10 mg by ity of tablet 15:29: mouth [place] 53 daily. 2 Medical tablets Branch liraglutide 2020-0 Yes .6mg inject 0.6 Univers (VICTOZA 9-10 mg under ity of 2-GINNY) 0.6 15:29: the skin Familia as mg/0.1 mL 53 daily. Medical (18 mg/3 Branch mL) injection metFORMIN 2020-0 Yes 750mg Take 750 Uni vers 500 mg 9-10 mg by ity of tablet 15:29: mouth [place] 53 daily. 2 Medical tablets Branch liraglutide 2020-0 Yes .6mg inject 0.6 Univers (VICTOZA 9-10 mg under ity of 2-GINNY) 0.6 15:29: the skin Familia as mg/0.1 mL 53 daily. Medical (18 mg/3 Branch mL) injection metFORMIN 2020-0 Yes 750mg Take 750 Uni vers 500 mg 9-10 mg by ity of tablet 10:29: mouth [place] 53 daily. 2 Medical tablets Branch liraglutide 2020-0 Yes .6mg inject 0.6 Univers (VICTOZA 9-10 mg under ity of 2-GINNY) 0.6 10:29: the skin Familia as mg/0.1 mL 53 daily. Medical (18 mg/3 Branch mL) injection lactated 2020-0 Yes 1000mL at 42 Univer s ringers IV 9-09 mL/hr, ity of infusion 17:30: 1,000 [place], [place] 1[place]000 [place] 00 IV Medical Infusion, Branch CONTINUOUS , Starting Sat04/13/20 at 1230, Until Discontinu ed, Routine, PACU HYDROmorpho 2020-0 Yes .2mg 0.2 mg, Uni vers ne 04-13 Slow IV ity of (DILAUDID) 17:28: Push, [place] injection 56 Q5MIN PRN, Medi stanislaw 0.2 mg 10 doses, Branch Starting Sat04/13/20 at 1228, Until Discontinu ed, Routine, Pain (scale 7-10), PACU
Us e approved by (Faculty): PACU USE -ANESTHESI A SERVICE-HY DROMORPHON E INJECTIONS FENTanyl PF 2020-0 Yes 25ug 25 mcg, Uni vers (SUBLIMAZE 04-13 Slow IV ity of (PF)) 17:28: Push, [place] injection 56 Q5MIN PRN, Medi stanislaw 25 mcg 4 doses, Branch Starting Sat04/13/20 at 1228, Until Discontinu ed, Routine, Pain (scale 4-6), PACU ondansetron 2020-0 Yes 4mg 4 mg, Slow Univers (ZOFRAN 04-13 IV Push, ity of (PF)) 17:28: PRN, 1 [place] injection 4 56 dose, Medical mg Starting Branch Sat04/13/20 at 1228, Until Discontinu ed, Routine, Nausea and Vomiting (N/V), PACU morpHINE 2020-0 Yes 4mg 4 mg, Slow Uni vers injection 4 04-13 IV Push, ity of mg 17:28: Q5MIN PRN, [place] 56 2 doses, Medical Starting Branch Sat04/13/20 at 1228, Until Discontinu ed, Routine, Pain (scale 7-10), PACU FENTanyl PF 2020-0 Yes 25ug 25 mcg, Uni vers (SUBLIMAZE 04-13 Slow IV ity of (PF)) 17:28: Push, [place] injection 56 Q5MIN PRN, Medi stanislaw 25 mcg 4 doses, Branch Starting Sat04/13/20 at 1228, Until Discontinu ed, Routine, Pain (scale 4-6), PACU sugammadex 2020-0 2020- No ONCE INTRA Univers (BRIDION) 04-13 PROCEDURE, ity of injection 16:40: 16:54 Starting Familia as 00 :12 Sat04/13/20 Medical at 1140, Branch Until Sat04/13/20 at 1154, Routine, Intra-op ondansetron 2020-0 2020- No ONCE INTRA Univers (ZOFRAN 04-13 PROCEDURE, ity o f (PF)) 16:35: 16:54 Starting [place] injection 00 :12 Sat04/13/20 Medi stanislaw at 1135, Branch Until Sat04/13/20 at 1154, Routine, Intra-op ePHEDrine 2020-0 2020- No ONCE INTRA U nivers 25 mg/5 mL 04-13 PROCEDURE, it y of (5 mg/mL) 15:42: 16:54 Starting Familia as syringe 00 :12 Sat04/13/20 Medica l at 1042, Branch Until Sat04/13/20 at 1154, Routine, Intra-op acetaminoph 2020-0 2020- No Administer Univers en ADULT 04-13 over 15 ity of (OFIRMEV) 15:34: 16:54 Minutes, Familia as injection 00 :12 ONCE INTRA Medi stanislaw PROCEDURE, Branch Starting Sat04/13/20 at 1034, Until Sat04/13/20 at 1154, Routine, Intra-op dexamethaso 2020-0 2020- No IV Push, U nivers ne 04-13 ONCE INTRA ity of (DECADRON 15:25: 16:54 PROCEDURE, [place] PHOSPHATE) 00 :12 Starting Medic al injection Sat04/13/20 Bran ch at 1025, Until Sat04/13/20 at 1154, Routine, Intra-op phenylephri 2020-0 2020- No ONCE INTRA Univers ne 04-13 PROCEDURE, ity of (VAZCULEP) 15:19: 16:54 [place] injection 00 :12 Sat04/13/20 [facility] stanislaw at 1019, Branch Until Sat04/13/20 at 1154, Routine, Intra-op ceFAZolin 2020-0 2020- No ONCE INTRA U nivers (ANCEF) 04-13 PROCEDURE, ity o f injection 15:18: 16:54 Starting Familia as 00 :12 Sat04/13/20 Medical at 1018, Branch Until Sat04/13/20 at 1154, [place], Intra-op esmoloL 2020-0 2020- No ONCE INTRA Uni vers (BREVIBLOC) 04-13 PROCEDURE, i ty of injection 15:09: 16:54 Starting Familia as 00 :12 Sat04/13/20 Medical at 1009, Branch Until Sat04/13/20 at 1154, Routine, Intra-op rocuronium 2020-0 2020- No IV Push, Un sera (ZEMURON) 04-13 ONCE INTRA ity of injection 15:07: 16:54 PROCEDURE, [place] 00 :12 Starting Medical 04/13/20 Branch at 1007, Until Sat04/13/20 at 1154, Routine, Intra-op lidocaine 2020-0 2020- No ONCE INTRA U nivers 1% 04-13 PROCEDURE, ity of (XYLOCAINE) 15:05: 16:54 Starting [place] 100 mg/10 00 :12 Sat04/13/20 Medi stanislaw mL (1 %) at 1005, Branch injection Until Sat04/13/20 at 1154, Routine, Intra-op propofoL IV 2020-0 2020- No ONCE INTRA Univers infusion 04-13 PROCEDURE, ity of 15:05: 16:54 Starting [place] 00 :12 Sat04/13/20 Medical at 1005, Branch Until Sat04/13/20 at 1154, Routine, Intra-op ropivacaine 2020-0 2020- No ONCE INTRA Univers 0.5 % 04-13 PROCEDURE, ity of (NAROPIN 14:30: 16:54 Starting [place] (PF)) 00 :12 Sat04/13/20 Medical injection at 0930, Branch Until Sat04/13/20 at 1154, Routine, Intra-op midazolam 2020-0 2020- No ONCE INTRA U nivers (VERSED) 04-13 PROCEDURE, ity of injection 14:29: 16:54 Starting Familia as 00 :12 Sat04/13/20 Medical at 0929, Branch Until Sat04/13/20 at 1154, Routine, Intra-op FENTanyl PF 2020-0 2020- No ONCE INTRA Univers (SUBLIMAZE 04-13 PROCEDURE, it y of (PF)) 14:29: 16:54 Starting [place] injection 00 :12 Sat04/13/20 Medi stanislaw at 0929, Branch Until Sat04/13/20 at 1154, Routine, Intra-op lactated 2020-0 2020- No CONTINUOUS Un sera ringers IV 04-13 PRN, ity of infusion 14:26: 16:54 [place] 00 :12 Sat04/13/20 Medical at 0926, Branch Until Sat04/13/20 at 1154, Routine, Intra-op lactated 2020-0 Yes PRN, Univers Ringers 04-13 Starting ity of irrigation 13:38: Sat04/13/20 [place] solution 00 at 0838, Medical Until Branch Discontinu ed, Routine, Intra-op lactated 2020-0 2020- No 1000mL at 20 Unive rs ringers IV 04-13 mL/hr, ity of infusion 13:30: 13:26 1,000 mL, Familia as 1,000 mL 00 :00 IV Medical Infusion, Branch ONCE, 1 dose, Sat04/13/20 at 0830, Routine, DSU Pre-op metFORMIN 2019-0 Yes 750mg Take 750 Uni vers 500 mg 9-04 mg by ity of tablet 19:55: mouth [place] 05 daily. 2 Medical tablets Branch liraglutide 2019-0 Yes .6mg inject 0.6 Univers (VICTOZA 9-04 mg under ity of 2-GINNY) 0.6 19:55: the skin Familia as mg/0.1 mL 05 daily. Medical (18 mg/3 Branch mL) injection metFORMIN 2019-0 Yes 750mg Take 750 Uni vers 500 mg 9-04 mg by ity of tablet 19:55: mouth [place] 05 daily. 2 Medical tablets Branch liraglutide 2019-0 Yes .6mg inject 0.6 Univers (VICTOZA 9-04 mg under ity of 2-GINNY) 0.6 19:55: the skin Familia as mg/0.1 mL 05 daily. Medical (18 mg/3 Branch mL) injection Immunizations Ordered Filled Immunization Date Status Comments [facility] e Immunization Name Name SARS-COV-2 COVID-19 2021-06-13 Completed Unive rsity of MODERNA VACCINE 00:00:[address] [facility] SARS-COV-2 COVID-19 2020-11-09 Completed Unive rsity of MODERNA VACCINE 00:00:[address] [facility] SARS-COV-2 COVID-19 2020-10-12 Completed Unive rsity of MODERNA VACCINE 00:00:[address] [facility] Vital Signs Vital Name Observation Time Observation Value Comments Source Systolic blood 2020-04-13 18:10:00 131 mm[Hg] Univer sity of pressure [place] [facility] Diastolic blood 2020-04-13 18:10:00 77 mm[Hg] Unive rsity of pressure [place] [facility] Heart rate 2020-04-13 18:10:00 76 /min [facility]i [facility] [place] [facility] Body temperature 2020-04-13 18:10:00 36.67 Viry Univ ersity of [place] [facility] Respiratory rate 2020-04-13 18:10:00 14 /min Univ ersity of [place] [facility] Oxygen saturation in 2020-04-13 18:10:00 93 /min University of Arterial blood by [facility] Pulse oximetry Branch Body height 2020-04-08 19:45:00 170.2 cm [facility]i ty [facility] [place] [facility] Body weight 2020-04-08 19:45:00 92.987 kg [facility] [place] [facility] BMI 2020-04-08 19:45:00 32.11 kg/m2 [facility] [place] [facility] Systolic blood 2020-04-13 18:10:00 131 mm[Hg] Univer sity of pressure [facility] Diastolic blood 2020-04-13 18:10:00 77 mm[Hg] Unive rsity of pressure [facility] Heart rate 2020-04-13 18:10:00 76 /min [facility]i ty [facility] [place] [facility] Body temperature 2020-04-13 18:10:00 36.67 Viry Univ ersity of [facility] Respiratory rate 2020-04-13 18:10:00 14 /min Univ ersity [facility] [place] [facility] Oxygen saturation in 2020-04-13 18:10:00 93 /min University of Arterial blood by [facility] Pulse oximetry Branch Body height 2020-04-08 19:45:00 170.2 cm [facility] [place] [facility] Body weight 2020-04-08 19:45:00 92.987 kg [facility] [place] [facility] BMI 2020-04-08 19:45:00 32.11 kg/m2 [facility]i [facility] Respiratory rate 2020-04-13 16:49:00 21 /min Univ ersity [facility] Respiratory rate 2020-04-13 16:49:00 21 /min Univ [facility] Procedures Procedure Date / Time Performed Performing Clinician Sour e SARS-COV-2 COVID-19 2021-06-13 19:41:12 Doctor Unassigned, No [facility] [place] VACCINE,0.5ML,IM Name Medical Branch (MODERNA) INTUBATION 2020-04-19 14:20:56 Eulalia Jiménez [facility] Medical Branch NERVE BLOCK 2020-04-13 14:34:53 Eulalia Jiménez [place] o [facility] Medical Branch POCT GLUCOSE(AGE 2020-04-13 13:20:00 Reinier Jean [facility] >30DAYS) Medical Branch POCT GLUCOSE 2020-04-13 13:15:00 [facility] (AUTOMATED) [facility] BASIC METABOLIC PANEL 2020-04-12 16:15:00 [facility] (NA, K, CL, CO2, [facility] GLUCOSE, BUN, CREATININE, CA) CBC WITH DIFF 2020-04-12 16:15:00 [facility] COVID-19 (ID NOW RAPID 2020-04-12 16:15:00 [facility] TESTING) [facility] Branch CONSENT/REFUSAL FOR 2020-04-12 15:08:00 Doctor Unassigned, No [facility] [place] DIAGNOSIS AND Name Medical Branch TREATMENT ASSIGNMENT OF BENEFITS 2020-04-12 15:07:42 Doctor Unassigned, No [facility] Medical Branch NOTICE OF PRIVACY 2020-04-12 15:07:25 Doctor Unassigned, No [facility] Name Medical Branch CONSENT/REFUSAL FOR 2020-04-12 15:07:12 Doctor [facility]assigned, [facility] AND Name Medical Branch TREATMENT ASSIGNMENT OF BENEFITS 2020-04-12 15:06:53 Doctor Unassigned, No [facility] Medical Branch NOTICE OF PRIVACY 2020-04-08 15:10:45 Doctor Unassigned, No [facility] Name Medical Branch CONSENT/REFUSAL FOR 2020-04-08 15:10:29 Doctor Unassigned, No [facility] [place] DIAGNOSIS AND Name Medical Branch TREATMENT ASSIGNMENT OF BENEFITS 2020-04-08 15:10:14 Doctor Unassigned, No [facility] Medical Branch XR KNEE 3 VW BILATERAL 2019-09-07 15:24:16 [facility] XR SHOULDER <2 VW 2019-09-07 15:24:16 Clifton Lopez [facility] of [place] BILATERAL Medical Branch ASSIGNMENT OF BENEFITS 2019-09-07 14:29:59 Doctor Unassigned, No [facility] Encounters Start End Encounter Admission Attending Care Care Encounter Source Date/Time Date/Time Type Type Clinicians Facility Department ID 2021-06-02 [facility] [id number] Univers 15:12:04 MARLO nolberto [facility] 2021-06-13 2021-06-13 Outpatient Huang LÓPEZ [facility] [id number] Univers 13:30:00 13:05:38 ZURDO nolberto [facility] 2021-06-13 2021-06-13 Imm/Inj Nurse, Adc Pob Immunization [facility] [id number] Univers 13:05:28 13:05:38 Visit Zurdo López 350.1.13 .10 [place] 4[place]2.7.2.686 [place] PROFESS[place] [id number] Ga dical [address] 2020-12-07 2020-12-07 Outpatient Huang DURÁN [facility] [id number] Univers 08:40:00 08:40:00 JC [facility] [place] [facility] 2020-11-09 2020-11-09 Outpatient Huang DURÁN [facility] [id number] Univers 15:50:00 15:50:00 [facility] 2020-10-12 2020-10-12 Outpatient Huang DURÁN [facility] [id number] Univers 15:50:00 15:50:00 JC [facility] [place] [facility] 2020-04-13 2020-04-13 [facility] [id number] 08:10:00 13:22:00 Encounter Marlo Rosa [id number] [place] 4.2.7.2.686 Surgical [id number] [place] [id number] 2020-04-13 2020-04-13 [facility] [id number] Univers 08:10:00 13:22:00 Encounter Marlo Rosa [id number] ity nicko [place] 4[place]2.7.2.686 [place] Surgical [id number] [facility] 071 [place] 2020-04-13 2020-04-13 Anesthesia Reinier Jean [facility] 1.2.840.11 [id number] 09:59:00 11:54:00 MaikelEulalia amanda Moe [id number] [place] 4.2.7.2.686 Surgical [id number] [place] 020 2020-04-13 2020-04-13 Anesthesia Reinier Jean [facility] 1.2.840.11 [id number] [facility] 09:59:00 11:54:00 TinoEulalia Moe [id number] ity of [place] 4.2.7.2.686 [place] [id number] [facility] 020 [place] 2020-04-12 2020-04-12 Laboratory Only, [facility] 1.2.840.114 [id number] 10:07:53 10:22:53 Only Test Moe [id number] [place] 4.2.7.2.686 [place] [id number] [facility] 2020-04-12 2020-04-12 Laboratory Only, Adc Test [facility] 1.2.840. 114 [id number] [facility] 10:07:53 10:22:53 Only Marlo Alexander 350.1. 13.10 ity of [place] 4.2.7.2.686 [facility] [place] [facility] [place] [id number] [address] 2020-04-12 2020-04-12 Railroad Signal Technician Sherif [facility] 1.2.840.114 [id number] 10:07:23 10:22:23 Visit Lab Main Moe [id number] [place] 4.2.7.2.686 Professio [id number] [address] 2020-04-12 2020-04-12 Railroad Signal Technician Sherif [facility] Lab Main [facility] 1.2.8 [id number] [facility] 10:07:23 10:22:23 Visit Marlo Alexander 350.1. 13.10 ity of [place] 4.2.7.2.686 [facility] [id number] Ga dical [address] 2020-04-12 2020-04-12 [facility] [id number] Univers 07:45:00 07:45:00 MARLO josé miguelnolberto of [facility] 2019-09-07 2019-09-07 [facility] 1.2.840.114 [id number] 08:30:00 23:59:00 Encounter Sotero Rosa [id number] [place] 4.2.7.2.686 [place] [id number] 2019-09-07 2019-09-07 [facility] 1.2.840.114 [id number] Univers 08:30:00 23:59:00 Encounter Sotero Rosa [id number] ity of [place] 4.2.7.2.686 [place] [id number] [facility] 807 [place] 2019-09-07 2019-09-07 Orders Doctor EULALIA 1.2.840.114 [id number] 00:00:00 00:00:00 Only Unassigned, ERICH [id number] [place] [facility] 4.2.7.2.686 [id number] 2019-09-07 2019-09-07 Orders Doctor EULALIA 1.2.840.114 [id number] Univers 00:00:00 00:00:00 Only Unassigned, ERICH [id number] ity of [place] [facility] 4.2.7.2.686 Familia [id number] [facility] 009 [place] Results Test Test Test Results Result Source Description Time Comments Comments Intubation 2020-04- Eulalia Jiménez MD ? ? Un iversity of 15 04/19/2020 ?9:22 [facility] ica 14:20:56 AMIntubationDate/Time: Br anch 04/13/2020 10:10 AMUrgency: elective Airway not difficult General Information and Staff Patient location during procedure: ORResident/THREAD CHECKER: Janusz Whelan CRNAPerformed: resident/THREAD CHECKER Indications and Patient ConditionIndications for airway management: anesthesia and airway protectionSpontaneous Ventilation: absentSedation level: deepPreoxygenated: yesPatient position: sniffingMILS maintained throughoutMask difficulty assessment: 1 - vent by mask Final Airway DetailsFinal airway type: endotracheal airway Successful airway: ETTCuffed: yes Successful intubation technique: direct laryngoscopyFacilitating devices/methods: intubating styletEndotracheal tube insertion site: oralBlade: MillerBlade size: #2ETT size (mm): 7.5Cormack-Lehane Classification: grade IIb - view of arytenoids or posterior of glottis onlyPlacement verified by: chest auscultation, capnometry and palpation of cuff Cuff volume (mL): 7Measured from: lipsETT to lips (cm): 23Number of attempts at approach: 1Ventilation between attempts: BVMNumber of other approaches attempted: 0 Additional CommentsDentition and lips unchanged from pre-op. POCT GLUCOSE (AUTOMATED) 2020-04-14 10:08:00 Test Item Value Reference Range Interpretation Comme [facility] POCT GLU (test code = 9988406227) 137 mg/dL 70-110 H Lab Interpretation (test code = 96088-6) Abnormal [facility] [id number] 14:34:53Eulalia Jiménez MD ? ? 04/13/2020 ?9:36 AM Nerve Block Procedure: Interscalene Nerve Block Laterality:RightSurgical Anesthesia: no Start Time: 04/13/2020 9:25 AMEnd Time: 04/13/2020 9:35 AMPost Op Pain Management requested by surgeon per surgical: Progress NoteAnesthesiologist: Eulalia Jiménez MDPerformed by: anesthesiologistPreanesthetic timeout completed prior to procedure: patient identified,IV checked, site marked, risks and benefits discussed, surgical consent, monitors and equipment checked, pre-opevaluation, timeout performedPatient Position: sittingSterile Prep/Drape: YesMonitoring: continuous pulse ox, blood pressure and ECGInjection Technique: single-shotNeedle Type: StimuplexNeedle Gauge: 22 GNeedle Length: 2.0Number of Attempts: 1Motor response present at (mA): 0.7Technique: Stimulating needle, Negative aspiration and Intermittent aspiration during injectionSensory Effect: AdequateEvents: No paresthesia on incremental injection, Negative Aspiration, Patient tolerated procedure well, No symptoms of intraneural or IV injection and Local anesthetic solution visualized around nerve Medications Given: Regional:Bupiv 0.5% 15 mL Sedation:Midazolam 1Fentanyl 50 Additional Notes:Attempt by faculty, right interscalene nerve block under US with nerve Stim, no apparent complications [facility] [id number] 13:20:00 Test Item Value Reference Range Interpretation Comments POCT Glu (age>30days) (test code = 137 mg/dL 70-110 A 3342) Lab Interpretation (test code = Abnormal 49883-2) [facility] (NA, K, CL, CO2, GLUCOSE, BUN, CREATININE, CA)2020-04-12 16:59:00 Test Item Value Reference Range Interpretation Comments NA (test code = 135 mmol/L 135-145 8534285495) K (test code = 4.2 mmol/L 3.5-5 7161194198) CL (test code = 101 mmol/L 98-108 3952439999) CO2 TOTAL (test code = 25 mmol/L 23-31 9305692282) AGAP (test code = 2-16 2536823897) BUN (test code = 13 mg/dL 7-23 4225890226) GLUCOSE (test code = 113 mg/dL 70-110 H 4535639372) CREATININE (test code = 0.71 mg/dL 0.6-1.25 8046859981) CALCIUM (test code = 9.7 mg/dL 8.6-10.6 2796306543) eGFR Calculation mL/min/1.73m2 (Non-) (test code = 6809220851) eGFR Calculation mL/min/1.73m2 () (test code = 7677003833) KIERSTEN (test code = KIERSTEN) Association of Glomerular Filtration Rate (GFR) and Staging of Kidney Disease* + --+ --+ ------+| GFR (mL/min/1.73 m2) ?| With Kidney Damage ?| ?Without Kidney Damage+ --------+ --------+ +| ?>90 ?| ?Stage one ?| ? Normal ?+ ---+ ---+ -------+| ?60-89 ?| ?Stage two ?| ? Decreased GFR ? + --+ --+ ------+| ?30-59 ?| ?Stage three ?| ? Stage three ? + --+ --+ ------+| ?15-29 ?| ?Stage four ? | ? Stage four ?+ ---+ ---+ -------+| ?<15 (or dialysis) ? ?| ?Stage five ? | ? Stage five ?+ ---+ ---+ -------+ *Each stage assumes the associated GFR level has been in effect for at least three months. ?Stages 1 to 5, with or without kidney disease, indicate chronic kidney disease. Notes: Determination of stages one and two (with eGFR >59mL/min/1.73 m2) requires estimation of kidney damage for at least three months as defined by structural or functional abnormalities of the kidney, manifested by either:Pathological abnormalities or Markers of kidney damage (including abnormalities in the composition of the blood or urine or abnormalities in imaging tests). Lab Interpretation Abnormal (test code = 43926-5) [facility] (ID NOW RAPID TESTING)2020-04-12 16:56:00 Test Item Value Reference Range Interpretation Comments SARS-CoV-2 Rapid ID NOW Not Detected Not Detected (test code = 25793-7) KIERSTEN (test code = KIERSTEN) ID NOW COVID-19 Assay is an isothermal nucleic acid amplification test intended for the qualitative detection of nucleic acid from SARS-CoV-2 viral RNA in nasopharyngeal (FILING AND POLISHING SUPERVISOR) specimens. It is used under Emergency Use Authorization (EUA) by FDA. The limit of detection (LOD) of the assay is 125 Genome Equivalents/mL. A positive result is indicative of the presence of SARS-CoV-2 RNA. ?Clinical correlation with patient history and other diagnostic information is necessary to determine patient infection status. A negative (Not Detected) result does not preclude SARS-CoV-2 infection. In patients with clinical symptoms and other tests that are consistent with SARS-CoV-2 infection, negative results should be treated as presumptive negative and a new specimen should be tested with alternative PCR molecular test. Invalid: Please collect a new specimen for repeat patient testing if clinically indicated. Lab Interpretation Normal (test code = 08117-6) [facility] WITH [id number] 16:34:00 Test Item Value Reference Range Interpretation Comments WBC (test code = See_Comment [Automated 6690-2) message] The sy stem which generated this result transmitted reference range : 4.20 - 10.70 10*3/?L. The reference range was not used to interpret this result as normal/abnormal . RBC (test code = See_Comment [Automated 789-8) message] The sy stem which generated this result transmitted reference range : 4.26 - 5.52 10*6/?L. The reference range was not used to interpret this result as normal/abnormal . HGB (test code = 14.9 g/dL 12.2-16.4 718-7) HCT (test code = 42.9 % 38.4-49.3 4544-3) MCV (test code = 89.9 fL 81.7-95.6 787-2) MCH (test code = 31.2 pg 26.1-32.7 785-6) MCHC (test code = 34.7 g/dL 31.2-35 786-4) RDW-SD (test code = 38.9 fL 38.5-51.6 45099-6) RDW-CV (test code = 11.8 % 12.1-15.4 L 788-0) PLT (test code = See_Comment [Automated 777-3) message] The sy stem which generated this result transmitted reference range : 150 - 328 10*3/ ?L. The reference r liliana was not used to interpret this result as normal/abnormal . MPV (test code = 9.9 fL 9.8-13 38602-9) NRBC/100 WBC (test See_Comment [Automat ed code = 6690023908) message] The system which generated this result transmitted reference range : 0.0 - 10.0 /100 WBCs. The refer ence range was not u sed to interpret th is result as normal/abnormal . NRBC x10^3 (test code <0.01 See_Comment [Auto mated = [id number]) message] The s ystem which generated this result transmitted reference range : 10*3/?L. The reference range was not used to interpret this result as normal/abnormal . GRAN MAT (NEUT) % 56.6 % (test code = 770-8) IMM GRAN % (test code 0.50 % = 4746355763) LYMPH % (test code = 36.6 % 736-9) MONO % (test code = 4.8 % 5905-5) EOS % (test code = 1.0 % 713-8) BASO % (test code = 0.5 % 706-2) GRAN MAT x10^3(ANC) 3.58 10*3/uL 1.99-6.95 (test code = 3186830732) IMM GRAN x10^3 (test 0.03 10*3/uL 0-0.06 code = 4486120427) LYMPH x10^3 (test code 2.31 10*3/uL 1.09-3.23 = 731-0) MONO x10^3 (test code 0.30 10*3/uL 0.36-1.02 L = 742-7) EOS x10^3 (test code = 0.06 10*3/uL 0.06-0.53 711-2) BASO x10^3 (test code 0.03 10*3/uL 0.01-0.09 = 704-7) Lab Interpretation Abnormal (test code = 84267-9) [facility] [id number] 18:59:38 Mild bilateral knee and glenohumeral joint osteoarthrosis. Bilateral rotator cuff crystalline deposition. Enthesophyte formation versus biceps tendon osseous bodies at the level ofthe left proximal humerus. EXAM: XR KNEE 3 VW BILATERAL, EXAM: XR SHOULDER <2 VW BILATERAL HISTORY: Pain in both knees, unspecified chronicity COMPARISON: None FINDINGS: Imaging of the left and right knee demonstrates mild degenerative tibialspine hypertrophy. Mild bilateral tricompartmental knee joint spacenarrowing with subchondral sclerosis and osteophyte formation are seen. Adystrophic calcification is seen over the posterior proximal left leg.Trace joint effusions are present. Images of the left shoulder demonstrate maintenance of alignment.Curvilinear crystalline deposits are seen adjacent to the humeral heads.Minimal inferior glenohumeral osteophytosis is seen bilaterally, morenotable on the left. Osseous debris lies along the proximal medial cortexof the left humeral head. [facility], Radiant Results Inft /2020 1:00 PM CSTEXAM:XR KNEE 3 VW BILATERAL,EXAM:XR SHOULDER <2 VW BILATERALHISTORY:Pain inboth knees, unspecified chronicity COMPARISON:NoneFINDINGS: Imaging of the left and right knee demonstrates mild degenerative tibialspine hypertrophy. Mild bilateral tricompartmental knee joint spacenarrowing with subchondral sclerosis and osteophyte formation are seen. Adystrophic calcification is seen over the posterior proximal left leg.Trace joint effusions are present.Images of the left shoulderdemonstrate maintenance of alignment.Curvilinear crystalline deposits are seen adjacent to the humeral heads.Minimal inferior glenohumeral osteophytosis is seen bilaterally, morenotable on the left. Osseous debris lies along the proximal medial cortexof the left humeral head.IMPRESSIONMild bilateral knee and glenohumeral joint osteoarthrosis.Bilateral rotator cuff crystalline deposition.Enthesophyte f ormation versus biceps tendon osseous bodies at the level ofthe left proximal humerus.[facility] 2019-09-07 18:59:38 Mild bilateral knee and glenohumeral joint osteoarthrosis. Bilateral rotator cuff crystalline deposition. Enthesophyte formation versus biceps tendon osseous bodies at the level ofthe left proximal humerus. EXAM: XR KNEE 3 VW BILATERAL, EXAM: XR SHOULDER <2 VW BILATERAL HISTORY: Pain in both knees, unspecified chronicity COMPARISON: None FINDINGS: Imaging of the left and right knee demonstrates mild degenerative tibialspine hypertrophy. Mild bilateral tricompartmental knee joint spacenarrowing with subchondral sclerosis and osteophyte formation are seen. Adystrophic calcification is seen over the posterior proximal left leg.Trace joint effusions are present. Images of the left shoulder demonstrate maintenance of alignment.Curvilinear crystalline deposits are seen adjacent to the humeral heads.Minimal inferior glenohumeral osteophytosis is seen bilaterally, morenotable on the left. Osseous debris lies along the proximal medial cortexof the left humeral head. [facility], Radiant Results Inft User -09/07/2019 1:00 PM CSTEXAM:XR KNEE 3 VW BILATERAL,EXAM:XR SHOULDER <2 VW BILATERALHISTORY:Pain inboth knees, unspecified chronicity COMPARISON:NoneFINDINGS: Imaging of the left and right knee demonstrates mild degenerative tibialspine hypertrophy. Mild bilateral tricompartmental knee joint spacenarrowing with subchondral sclerosis and osteophyte formation are seen. Adystrophic calcification is seen over the posterior proximal left leg.Trace joint effusions are present.Images of the left shoulderdemonstrate maintenance of alignment.Curvilinear crystalline deposits are seen adjacent to the humeral heads.Minimal inferior glenohumeral osteophytosis is seen bilaterally, morenotable on the left. Osseous debris lies along the proximal medial cortexof the left humeral head.IMPRESSIONMild bilateral knee and glenohumeral joint osteoarthrosis.Bilateral rotator cuff crystalline deposition.Enthesophyte f ormation versus biceps tendon osseous bodies at the level ofthe left proximal humerus.[facility]"
[2022-06-08] MEDS ORDERED: MORPHINE 4 MG/ML SYR ONE (12:03)
[2022-06-08] MEDS ORDERED: dexAMETHasone 10 MG/ML VIAL ONE (12:03)
[2022-06-08] MEDS ORDERED: KETOROLAC 30 MG/ML INJ ONE (12:03)
--- NOTE | 2022-06-08 12:04 | ER ---
Nurse's Notes [facility] Name: Mohan Billingsley Age: 57 yrs Sex: Male : 1965 Arrival Date: 06/08/2022 Time: 11:41 Bed 12 Private MD: Diagnosis: Dental caries, unspecified Presentation: 06/08 11:48 Chief complaint: Patient states: Toothache and right side of jaw swelling x 3 days; vg1 stated was unable to get an appt for dentist or PCP. at 0800. Coronavirus screen: Vaccine status: Patient reports receiving the 2nd dose of the covid vaccine. Client denies travel out of the [place] in the last 14 days. Ebola Screen: Patient negative for fever greater than or equal to 101.5 degrees Fahrenheit, and additional compatible Ebola Virus Disease symptoms. Initial Sepsis Screen: Does the patient meet any 2 criteria? No. Patient's initial sepsis screen is negative. Does the patient have a suspected source of infection? No. Patient's initial sepsis screen is negative. Risk Assessment: Do you want to hurt yourself or someone else? Patient reports no desire to harm self or others. Onset of symptoms was June 05, 2022. 11:48 Method Of Arrival: Ambulatory vg1 11:48 Acuity: ANILA 4 vg1 Triage Assessment: 11:51 General: Appears uncomfortable, Behavior is calm, cooperative. Pain: Complains of pain vg1 in right jaw Pain currently is 7 out of 10 on a pain scale. Pain began 2-3 days ago. EENT: Reports pain in mouth, right side of jaw. Historical: - Allergies: 11:51 No Known Allergies; vg1 - Home Meds: 11:51 Metformin Oral [Active]; vg1 - PMHx: 11:51 Diabetes - IDDM; Diabetes - NIDDM; vg1 - PSHx: 11:51 None; vg1 - Immunization history:: Client reports receiving the 2nd dose of the Covid vaccine. - Social history:: Smoking status: Patient reports the use of cigarette tobacco products, denies chronic smoking, but will smoke occasionally. - Family history:: not pertinent. - Hospitalizations: : No recent hospitalization is reported. Screenin:18 Abuse screen: Denies threats or abuse. Denies injuries from another. Nutritional tp1 screening: No deficits noted. Tuberculosis screening: No symptoms or risk factors identified. Fall Risk None identified. Assessment: 12:00 General: Appears in no apparent distress. comfortable, Behavior is calm, cooperative. tp1 Pain: Complains of pain in right jaw Pain radiates to head and eye Pain currently is 9 out of 10 on a pain scale. Quality of pain is described as sharp. Neuro: Level of Consciousness is awake, alert, obeys commands, Oriented to person, place, time, situation. Cardiovascular: Patient's skin is warm and dry. Respiratory: Airway is patent Respiratory effort is even, unlabored. GI: No signs and/or symptoms were reported involving the gastrointestinal system. : No signs and/or symptoms were reported regarding the genitourinary system. EENT: EENT: No signs and/or symptoms were reported regarding the EENT system. Derm: Skin is pink, warm \T\ dry. Musculoskeletal: Circulation, motion, and sensation intact. Swelling present in right jaw. Vital Signs: 11:48 BP 138 / 77; Pulse 60; Resp 16; Temp 97.8; Pulse Ox 100% ; Weight 90.72 kg; Height 5 vg1 ft. 6 in. (167.64 cm); Pain 7/10; 12:25 BP 148 / 83; Pulse 63; Resp 16; Pulse Ox 98% on R/A; tp1 11:48 Body Mass Index 32.28 (90.72 kg, 167.64 cm) vg1 ED Course: 11:41 Patient arrived in ED. mr 11:47 Warren Morris MD is Attending Physician. rn 11:51 Triage completed. vg1 11:51 Arm band placed on. vg1 12:00 Sharon Bustos, MARY is Primary Nurse. tp1 12:00 Patient has correct armband on for positive identification. Bed in low position. Call tp1 light in reach. Adult w/ patient. 12:00 Inserted saline lock: 20 gauge in right antecubital area, using aseptic technique. tp1 12:18 No provider procedures requiring assistance completed. tp1 12:33 IV discontinued, intact, bleeding controlled, No redness/swelling at site. Pressure tp1 dressing applied. Administered Medications: 12:09 Drug: Decadron - Dexamethasone 10 mg Route: IVP; Site: right antecubital; tp1 12:33 Follow up: Response: Medication administered at discharge. tp1 12:10 Drug: Ketorolac 15 mg Route: IVP; Site: right antecubital; tp1 12:33 Follow up: Response: Pain is decreased tp1 12:11 Drug: morphine 4 mg Route: IVP; Infused Over: 4 mins; Site: right antecubital; tp1 12:33 Follow up: Response: Pain is decreased tp1 Medication: 12:18 VIS not applicable for this client. tp1 Outcome: 12:04 Discharge ordered by . rn 12:33 Discharged to home ambulatory, with family. tp1 12:33 Condition: good 12:33 Discharge instructions given to patient, family, Instructed on discharge instructions, follow up and referral plans. medication usage, Demonstrated understanding of instructions, follow-up care, medications, Prescriptions given X 3. 12:34 Patient left the ED. tp1 Signatures: Radha Bishop Roman, MD MD rn Joseluis, MARY Mclaughlin RN vg1 Sharon Bustos RN RN tp1
--- NOTE | 2022-06-08 12:05 | EDPHYS ---
Physician Documentation [facility] Name: Mohan Billingsley Age: 57 yrs Sex: Male : 1965 Arrival Date: 06/08/2022 Time: 11:41 Bed 12 Private MD: ED Physician Warren Morris HPI: 06/08 12:00 This 57 yrs old Male presents to ER via Ambulatory with complaints of rn Toothache. 12:00 The patient presents with pain. The problem is located in the right posterior teeth. rn Onset: The symptoms/episode began/occurred 2 day(s) ago. Duration: The symptoms are continuous. Modifying factors: The symptoms are alleviated by nothing, the symptoms are aggravated by chewing, talking. Associated signs and symptoms: Pertinent positives: pain, Pertinent negatives: fever, swelling. Severity of symptoms: At their worst the symptoms were moderate, in the emergency department the symptoms are unchanged. The patient has experienced similar episodes in the past. The patient has not recently seen a physician. Pt reports 2 days of worsening right lower tooth pain, no swelling, no fever, unable to get into dentist or pcp so came here. . Historical: - Allergies: 11:51 No Known Allergies; vg1 - Home Meds: 11:51 Metformin Oral [Active]; vg1 - PMHx: 11:51 Diabetes - IDDM; Diabetes - NIDDM; vg1 - PSHx: 11:51 None; vg1 - Immunization history:: Client reports receiving the 2nd dose of the Covid vaccine. - Social history:: Smoking status: Patient reports the use of cigarette tobacco products, denies chronic smoking, but will smoke occasionally. - Family history:: not pertinent. - Hospitalizations: : No recent hospitalization is reported. ROS: 12:00 Constitutional: Negative for fever, chills, and weight loss, ENT: + dental pain rn Exam: 12:00 Constitutional: This is a well developed, well nourished patient who is awake, alert, rn and in no acute distress. ENT: Poor dentition, right molar/premolar with crack in cap of tooth, no abscess or focal swelling noted. Vital Signs: 11:48 BP 138 / 77; Pulse 60; Resp 16; Temp 97.8; Pulse Ox 100% ; Weight 90.72 kg; Height 5 vg1 ft. 6 in. (167.64 cm); Pain 7/10; 12:25 BP 148 / 83; Pulse 63; Resp 16; Pulse Ox 98% on R/A; tp1 11:48 Body Mass Index 32.28 (90.72 kg, 167.64 cm) vg1 MDM: 11:47 Patient medically screened. rn 12:00 Differential diagnosis: dental caries, dental abscess. Data reviewed: vital signs, rn nurses notes, and as a result, I will discharge patient. Counseling: I had a detailed discussion with the patient and/or guardian regarding: the historical points, exam findings, and any diagnostic results supporting the discharge/admit diagnosis, the need for outpatient follow up, to return to the emergency department if symptoms worsen or persist or if there are any questions or concerns that arise at home. Special discussion: I discussed with the patient/guardian in detail that at this point there is no indication for admission to the hospital. It is understood, however, that if the symptoms persist or worsen the patient needs to return immediately for re-evaluation. Based on the history and exam findings, there is no indication for further emergent testing or inpatient evaluation. I discussed with the patient/guardian the need to see a dentist for further evaluation of the symptoms. 06/08 12:00 Order name: IV Start; Complete Time: 12:15 rn Administered Medications: 12:09 Drug: Decadron - Dexamethasone 10 mg Route: IVP; Site: right antecubital; tp1 12:33 Follow up: Response: Medication administered at discharge. tp1 12:10 Drug: Ketorolac 15 mg Route: IVP; Site: right antecubital; tp1 12:33 Follow up: Response: Pain is decreased tp1 12:11 Drug: morphine 4 mg Route: IVP; Infused Over: 4 mins; Site: right antecubital; tp1 12:33 Follow up: Response: Pain is decreased tp1 Disposition Summary: 06/08/22 12:04 Discharge Ordered Location: Home rn Problem: new rn Symptoms: have improved rn Condition: Stable rn Diagnosis - Dental caries, unspecified rn Followup: rn - With: Private Physician - When: As needed - Reason: Recheck today's complaints, Re-evaluation by your physician Discharge Instructions: - Discharge Summary Sheet rn - Dental Caries, Adult rn - Dental Pain rn Forms: - Medication Reconciliation Form rn - Thank You Letter rn - Antibiotic international sales representative - Prescription Opioid Use rn Prescriptions: - Clindamycin HCl 300 mg Oral Capsule - take 1 capsule by ORAL route every 6 hours for 10 days; 40 capsule; Refills: 0, rn Product Selection Permitted - Medrol (Tonio) 4 mg Oral Tablets, Dose Pack - take 1 tablet by ORAL route as directed - follow package instructions; 1 rn packet; Refills: 0, Product Selection Permitted - Tylenol-Codeine #3 300 mg-30 mg Oral - take 1 tablet by ORAL route every 6-8 hours As needed; 10 tablet; Refills: 0, rn Product Selection Permitted Signatures: Warren Morris MD MD rn Lissette Huggins RN RN vg1 Sharon Bustos RN RN tp1
[2022-06-08 12:49] VITALS: BP 138/77; TEMP 97.8; O2SAT 100
== END 2022-06-08 12:34 | disposition home or self-care (01) ==
LOC: ER 11:39
DX: K02.9 Dental caries, unspecified (principal)
CPT/HCPCS: 96374; 96375; 99283; J1100